=== PATIENT | male | born 1960 | race Caucasian/White ===

== ENCOUNTER 2025-02-04 15:14 | Outpatient (CLI) | payer OTHER, SELFPAY ==
[2025-02-04 15:33] LABS: Hematocrit 44.7 % (42.0-52.0); Hemoglobin 14.9 g/dL (14.0-18.0); Immature Granulocyte Percent A 0.4 % (0-0.5); Lymphocytes Absolute Auto 1.86 K/mm3 (0.9-3.2); Mean Corpuscular HGB Conc 33.3 g/dl (32-36); Mean Corpuscular Hemoglobin 32.5 pg (26-34); Mean Corpuscular Volume 97.4 fl (80-100); Nucleated Red Blood Cells Absolute Auto 0.000 K/mm3 (0.0-0.012); Nucleated Red Blood Cells Perc 0.0 % (0.0-0.2); Platelet Count Result 700 k/mm3 (150-375); Red Blood Count 4.59 M/mm3 (4.6-6.20); White Blood Count 10.1 K/mm3 (4.5-10.0)
--- OUTSIDE RECORDS SUMMARY | 2025-02-04 16:00 | XMS_ITS | Clinical Summary ---
Author Organization [facility] Junior lynch Beny Address [address] [place] [address] Care Team Providers Care Military Technician Name Role Phone Unavailable Primary Care Provider Unavailabl e Allergies Active Allergy Reactions Criticality Noted Date Comments Morphine Unknown 02/04/2025 Medications losartan (COZAAR) 100 mg tablet Take 1 Tablet by mouth daily. 12/17/2024 Active pantoprazole (PROTONIX) 40 mg Tablet, Delayed Release (E.C.) Take 40 mg by mouth daily in the morning. 01/29/2025 Active tadalafil (CIALIS) 10 mg tablet Take 10 mg by mouth. 01/28/2025 Active Active Problems No known active problems Encounters Date Type Department Care Team Description 02/04/2025 3:00 PM CDT Office Visit [facility] Oncology and Hematology - [place] [address] [facility] [address] [address] Bryant Steward MD Essential thrombocytosis (CMS/HCC) (Primary Dx) from Last 3 Months Family History Medical History Relation Name Comments No Known Problems Brother 1 No Known Problems Brother 2 No Known Problems Brother 3 Lung Cancer Father Leukemia Mother No Known Problems Sister Relation Name Status Comments Brother 1 Alive Brother 2 Alive Brother 3 Alive Father Mother Sister Alive Social History Tobacco Use Types Packs/Day Years Used Date Smoking Tobacco: Never Smokeless Tobacco: Never Alcohol Use Standard Drinks/Week Comments Yes 0 (1 standard drink = 0.6 oz pur e alcohol) Socially Sex and Gender Information Value Date Recorded Sex Assigned at Not on file Legal Sex Male 11:04 PM CDT Gender Identity Not on file Sexual Orientation Not on file Last Filed Vital Signs Vital Sign Reading Time Taken Comments Blood Pressure 140/83 02/04/2025 2:51 PM CDT Pulse 89 02/04/2025 2:51 PM CDT Temperature 37 C (98.6 F) 02/04/2025 2:51 PM CDT Respiratory Rate 16 02/04/2025 2:51 PM CDT Oxygen Saturation 96% 02/04/2025 2:51 PM CDT Inhaled Oxygen Concentration - - Weight 124.8 kg (275 lb 3.2 oz) 02/04/2025 2:51 PM CDT Height 182.9 cm (6') 02/04/2025 2:51 PM CDT Body Mass Index 37.32 02/04/2025 2:51 PM CDT Plan of Treatment Upcoming Encounters Date Type Department Care Team (Late st Contact Info) Description 02/19/2025 4:00 PM CDT Telephone Check Up [facility] Oncology and Hematology - [place] [address] [place] [address] Tracy Villareal MD [address] [place] [address] Health Maintenance Due Date Last Done Comments DTAP/TDAP/TD VACCINES (1 - Tdap) 1977 COLORECTAL SCREENING 2003 Colorectal Cancer Screening 2003 FIT-DNA Q 3 years 2003 FIT/FOBT Q 1 year 2003 Flex Sig/CT Colonography Q 5 years 2003 PNEUMOCOCCAL VACCINE 50+ YEARS (1 of 1 - PCV) 05/07/20 08 ZOSTER VACCINE (1 of 2) 2008 Preventative Visit- Commercial 06/20/2024 INFLUENZA VACCINE (#1) 2025 RSV VACCINE (60+ or ) (1 - 1-dose 75+ series) 2033 Insurance [facility] [id number] Member Subscriber Plan / Payer (Ef fective 2024-Present) Name:Deni Arnold Relation to Subscriber:Self Name:Deni Arnold Payer ID:[id number] (NAIC) Type:HMO Address: [facility] [id number] [place] [id number]
--- OUTSIDE RECORDS SUMMARY | 2025-02-04 16:00 | XMS_ITS | Encounter Summary ---
Author Organization [facility] Address [address] [place] [address] Care Team Providers Care Door Serviceman Name Role Phone Unavailable Primary Care Provider Unavailabl e Reason for Referral * Laboratory Services (Routine) - Open Specialty Diagnoses / Procedures Referred By Contac t Referred To Contact Diagnoses Essential thrombocytosis (CMS/HCC) Procedures JAK2 MUTATION Bryant Steward MD [address] [facility] [address] [place] [address] Phone: tel: fax: Referral ID Status Reason Start Date Expiration Date Visits Re quested Visits Authorized [id number] Open 02/04/2025 03/07/2026 1 1 Reason for Visit * Reason Comments Establish Care Encounter Details Date Type Department Care Team (Late st Contact Info) Description 02/04/2025 3:00 PM CDT Office Visit [facility] Oncology and Hematology - [place] [address] [place] [address] [address] [place] [address] Bryant Steward MD [address] [place] [address] Essential thrombocytosis (CMS/HCC) (Primary Dx) Social History Tobacco Use Types Packs/Day Years Used Date Smoking Tobacco: Never Smokeless Tobacco: Never Alcohol Use Standard Drinks/Week Comments Yes 0 (1 standard drink = 0.6 oz pur e alcohol) Socially Sex and Gender Information Value Date Recorded Sex Assigned at Not on file Legal Sex Male 11:04 PM CDT Gender Identity Not on file Sexual Orientation Not on file documented as of this encounter Last Filed Vital Signs Vital Sign Reading [...] Mass Index 37.32 02/04/2025 2:51 PM CDT documented in this encounter Progress Notes * Bryant Steward MD - 02/04/2025 3:21 PM CDT Hematology-oncology consult Note Requesting Physician Primary Care Physician No primary care provider on file. Problem list There is no problem list on file for this patient. Previous TREATMENT ? Measurable Disease ? Reason for Visit Deni Arnold is a 64 y.o. male who was referred for consultation for thrombocytosis. History of present illness This is a pleasant 64-year-old obese male with history of hypertension and gastroesophageal reflux disease found to have elevated platelet count in June 2022. Patient attributed elevatedplatelet count to the COVID vaccination that he received in October 2020. Patient also had bilateral knee replacement done initially right knee replaced in June 2022 and left on October 2022. He denies any history of thromboembolic events including stroke and heart attack. His labs from November 23, 2024 showed platelet count of 729,000. He denies any other new complaints including arthralgias or any othersigns of infections and inflammations. Past Medical History Past Medical History: Diagnosis Date Hypertension GERD Surgical History Past Surgical History: Procedure Laterality Date HX BACK SURGERY HX KNEE SURGERY Medications Current Outpatient Medications Medication Sig Dispense Refill losartan (COZAAR) 100 mg tablet Take 1 Tablet by mouth daily. pantoprazole (PROTONIX) 40 mg Tablet, Delayed Release (E.C.) Take 40 mg by mouth daily in the morning. tadalafil (CIALIS) 10 mg tablet Take 10 mg by mouth. No current facility-administered medications for this visit. Allergies Allergies Allergen Reactions Morphine Unknown Immunizations: There is no immunization history on file for this patient. Family History Family History Problem Relation Name Age of Onset Lung Cancer Father Leukemia Mother No Known Problems Brother No Known Problems Brother No Known Problems Brother No Known Problems Sister Social History Social History Tobacco Use Smoking status: Never Smokeless tobacco: Never Substance Use Topics Alcohol use: Yes Comment: Socially Review of Systems Constitutional: Patient did not mention fever; no night sweats; no anorexia; no weight loss; no fatique NEENT: Patient did not mention headache; no change in vision; no change in hearing; no sore throat;no dysphagia Respiratory: Patient did not mention shortness of breath; no pleuritic chest pain; no cough; no hemoptysis Cardiac: Patient did not mention cardiac-like chest pain; no palpitations; no orthopnea; no PND; noDOE GI: Patient did not mention abdominal pain; no nausea; no vomiting; no diarrhea; no hematochezia; no melena : Patient did not mention dysuria; no frequency; no hesitancy; no hematuria PUBLIC ADDRESS SERVICER: Musculosketetal: Patient did not mention bone pain; no arthralgia; no joint swelling; no myalgia; Skin: Patient did not mention pruritis; no rash; no petechiae; no ecchymoses Endocrine: Patient did not mention polydipsia; no polyuria; no unusual weight gain Neuro: Patient did not mention headache; no change in vision; no sensory changes; no muscle weakness; no confusion; no seizures Psych: Patient did not mention anxiety; no depression; Physical Exam Vitals: As per nursing note Constitutional: Well developed, well nourished, no acute distress, non-toxic appearance Teeth and gum. No signs of infection or swelling. Eyes: PERRL, conjunctiva normal HEENT: Atraumatic, external ears normal, nose normal, oropharynx moist, no pharyngeal exudates. no sinus tenderness Neck- normal range of motion, no tenderness, supple Respiratory: No respiratory distress, normal breath sounds, no rales, no wheezing Cardiovascular: Normal rate, normal rhythm, no murmurs, no gallops, no rubs GI: Soft, nondistended, normal bowel sounds, nontender, no splenomegaly, no hepatomegaly, no mass, no rebound, no guarding : No costovertebral angle tenderness Musculoskeletal: No edema, no tenderness, no deformities. Back- no tenderness Integument: Well hydrated, no rash, Digits and nails inspection normal Lymphatic: No lymphadenopathy noted Neurologic: Alert & oriented x 3, CN 2-12 normal, normal motor function, normal sensory function, no focal deficits noted Psychiatric: Speech and behavior appropriate ? labs No results found for this or any previous visit (from the past 24 hours). Labs from November showed platelet count of 729,000. Pathology ? Imaging & Other Studies Performance Status? Assessment / Plan: ? Thrombocytosis. Patient is a pleasant 64-year-old male with history of hypertension and gastroesophageal flux disease. He has bilateral knee replaced due to arthralgia initial in June 2022 with a right knee surgery in October 2022 with a left knee surgery. He also had multiple back and right shoulder surgery in the past. He denies any joint pain and back pain. He has no previous history of thromboembolic events including stroke and heart attack. He attributed his high platelet count tothe COVID vaccination in 2020. Labs showed platelet count of 729,000. I have discussed the differential diagnosis of thrombocytosis with the patient. I will order the workup that will include CBC with differential, CMP, C-reactive protein, sedimentation rate, ferritin and JAK2 mutation testing. I have recommended him to trial taking baby aspirin once a day due to the risk of thromboembolic events. Based on the repeat testing will decide about hydroxyurea. I have answered all the questions to patient satisfaction. Follow- up in 2 weeks. Hypertension. Patient is on losartan. GERD. He is on Protonix. Thank you very much for allowing me to participate in Deni Arnold's evaluation and management. Please feel free to contact if I can be of any further assistance in your patient???s care requiring hematology or oncology evaluation. Sincerely, ? ? Bryant Steward M.D. cell TOBACCO COUNSELING He is not a tobacco/nicotine user. Bryant Steward MD ,02/04/2025 3:21 PM ? Total time spent 60 minutes, two third of the total time spent counseling patient [id number]. CC:? documented in this encounter Plan of Treatment Upcoming Encounters Date Type Department Care Team (Late st Contact Info) Description 02/19/2025 4:00 PM CDT Telephone Check Up [facility] Oncology and Hematology - [place] [address] [place] [address] Tracy Villareal MD [address] [place] [address] Scheduled Orders Name Type Priority Associated Diagnoses Orde r Schedule CBC WITH DIFFERENTIAL Lab Stat Essential thrombocytosis (CMS/HCC) Expected: 02/04/2025, Expires: 02/04/2026 COMPREHENSIVE METABOLIC PANEL Lab Stat Essential thrombocytosis (CMS/HCC) Expected: 02/04/2025, Expires: 02/04/2026 C-REACTIVE PROTEIN Lab Routine Essential thrombocytosis (CMS/HCC) Expected: 02/04/2025, Expires: 02/04/2026 FERRITIN Lab Routine Essential thrombocytosis (CMS/HCC) Expected: 02/04/2025, Expires: 02/04/2026 SEDIMENTATION RATE Lab Routine Essential thrombocytosis (CMS/HCC) Expected: 02/04/2025, Expires: 02/04/2026 JAK2 MUTATION Lab Routine Essential thrombocytosis (CMS/HCC) Expected: 02/04/2025, Expires: 02/04/2026 documented as of this encounter Visit Diagnoses Diagnosis Essential thrombocytosis (CMS/HCC)- Primary Essential thrombocythemia documented in this encounter
[2025-02-04 18:25] LABS: Alanine Aminotransferase 22 U/L (6-50); Albumin Level 3.9 g/dL (3.5-5.1); Alkaline Phosphatase 66 U/L (38-126); Anion Gap 6 mmol/L (4-12); Aspartate Amino Transferase 67 U/L (17-59); Bilirubin,Total 0.4 mg/dL (0.2-1.3); Blood Urea Nitrogen 15 mg/dL (9-20); CRP < 0.5 mg/dL (<1.0); Calcium 9.0 mg/dL (8.4-10.2); Carbon Dioxide 28 mmol/L (22-30); Chloride 104 mmol/L (98-107); Estimated Glomerular Filt Rate > 60; Glucose 87 mg/dL (65-110); Potassium 4.1 mmol/L (3.4-5.0); Sodium 138 mmol/L (137-145); Total Protein 6.6 g/dL (6.3-8.2)
[2025-02-04 18:55] LABS: Ferritin 86.40 ng/mL (11.1-264)
== END 2025-02-04 15:15 | disposition home or self-care (01) ==
LOC: ANHLAB 15:16
PROVIDERS: PCP Nurse Practitioner; Visit Provider Internal Medicine Hematology & Oncology
DX: D47.3 Essential (hemorrhagic) thrombocythemia (principal)
CPT/HCPCS: 36415; 80053; 82728; 85025; 85652; 86140